=== PATIENT | male | born 2000 | race Caucasian/White ===

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

== ENCOUNTER 2020-05-01 14:16 | Emergency (ER) | payer OTHER ==
[2020-05-01 14:24] VITALS: BP 129/79; PULSE 69; TEMP 97.9; BMI 25.0
--- NOTE | 2020-05-01 15:23 | PDOC ---
History of Present Illness - General Chief Complaint: Injury Stated Complaint: FINGER INJURY Time Seen by Provider: 05/01/20 14:55 History Source: Patient Exam Limitations: No Limitations - History of Present Illness Initial Comments: 05/01/20 15:19 HISTORY OF PRESENT ILLNESS: 19-year-old male denies medical history presents emergency department for evaluation of left index finger pain for 1 week after sticking his hand into a pressure box. 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 Patient reports after he had the injury he sucked on the wounds to help achieve hemostasis. He denies any fevers chills or decreased range of motion. No recent travel or sick contacts. PAST MEDICAL HISTORY: Denies past medical history SURGICAL HISTORY: Denies ALLERGIES: No known drug allergies; peanuts, nuts REVIEW OF SYSTEMS General/Constitutional: Denies fever or chills. Denies weakness, weight change. HEENT: Denies change in vision. Denies ear pain or discharge. Denies sore throat. Cardiovascular: Denies chest pain or shortness of breath. Respiratory: Denies cough, wheezing, or hemoptysis. Gastrointestinal: Denies nausea, vomiting, diarrhea or constipation. Denies rectal bleeding. Genitourinary: Denies dysuria, frequency, or change in urination. Musculoskeletal: See HPI Skin and breasts: Denies rash or easy bruising. Neurologic: Denies headache, vertigo, loss of consciousness, or loss of sensation. Psychiatric: Denies depression or anxiety. Endocrine: Denies increased thirst. Denies abnormal weight change. Hematologic/Lymphatic: Denies anemia, easy bleeding, or history of blood clots. Allergic/Immunologic: Denies hives or skin allergy. Denies latex allergy. PHYSICAL EXAM General Appearance: Well-appearing, appropriately dressed. No apparent distress, no intoxication. Lymphatic: No adenopathy, tenderness. Musculoskeletal/Extremities: Normal inspection. FROM of all extremities, normal capillary refill. Swelling present to the PIP of the left index finger. No erythema is noted. Resolving punctate injury noted to the medial aspect of the left index finger near the PIP. No malrotation of fingers present. Calluses present to the medial aspect of bilateral great toes. Neurovascularly intact. Integumentary: Appropriate color, dry, warm. No cyanosis, erythema, jaundice or rash Past History - Medical History Allergies/Adverse Reactions: Allergies Allergy/AdvReac Type Severity Reaction Status Date / Time peanut Allergy Difficulty Verified 05/01/20 14:24 Breathing NUTS Allergy Difficulty Uncoded 05/01/20 14:24 Breathing Home Medications: Ambulatory Orders NK [No Known Home Medication] 06/04/18 Asthma: Yes (SEASONAL) - Immunization History Immunization Up to Date: Yes - Psycho-Social/Smoking History Smoking History: Never smoked Have you smoked in the past 12 months: No Number of Cigarettes Smoked Daily: 0 Information on smoking cessation initiated: No - Substance Abuse Hx (Audit-C & DAST Scrn) How often the patient has a drink containing alcohol: Never Score: In Men: 4 or > Positive; In Women: 3 or > Positive: 0 Screen Result (Pos requires Nsg. Audit-10AR): Negative In the last yr the pt used illegal drug/Rx for NonMed reason: No Score: Yes response is considered Positive: 0 Screen Result (Positive result requires Nsg. DAST-10): Negative *Physical Exam - Vital Signs Last Vital Signs Temp Pulse Resp BP Pulse Ox 97.9 F 69 18 129/79 98 05/01/20 14:21 05/01/20 14:21 05/01/20 14:21 05/01/20 14:21 05/01/20 14:21 ED Treatment Course - RADIOLOGY Radiology Studies Ordered: Category Date Time Status FINGER(S) LEFT [RAD] Stat Radiology 05/01/20 14:54 Ordered Medical Decision Making - Medical Decision Making 05/01/20 15:22 A/P: 19-year-old male with swelling to left index finger X-rays Reassess 05/01/20 15:38 X-rays as read by me: No acute fractures or dislocations present. Soft tissue swelling noted over the PIP of the left index finger. Baseball splint Discharge home with orthopedic follow-up I discussed the physical exam findings, ancillary test results and final diagnoses with the patient. I answered all of the patient's questions. The patient was satisfied with the care received and felt comfortable with the discharge plan and treatment plan. The patient will call their primary care physician within 24 hours to arrange follow-up and will return to the Emergency Department with any new, persistent or worsening symptoms. Portions of this note have been documented using voice recognition software. As a result, errors may occur in the electronics technician apprentice process. Effort has been made to correct all grammatical and electronics technician apprentice error, but some may have been missed which may produce sporadic inaccurate electronics technician apprentice or nonsensical phrases. Discharge - Discharge Information Problems reviewed: Yes Clinical Impression/Diagnosis: Contusion, finger Qualifiers: Encounter type: initial encounter Finger: index finger Damage to nail status: without damage Laterality: left Qualified Code(s): S60.022A - Contusion of left index finger without damage to nail, initial encounter Condition: Stable Disposition: HOME - Admission No - Follow up/Referral Referrals: Tahmina Fernandez MD [Primary Care Provider] - Jaspal Cervantes MD [Staff Physician] - - Patient Discharge Instructions Additional Instructions: [email or web address] You be given a referral for an orthopedist. Call to schedule appointment for reevaluation of your pain. Your emergency department visit is incomplete until you follow-up with your regular doctor. Take Tylenol 2-500 mg tablets every 6 hours as needed for pain. Take Motrin 3-200 mg tablets every 6 hours as needed for pain. These medications do not require a prescription as they are [id number]. Apply ice to affected areas to help relieve pain. Do not leave ice on for more than 20 minutes at a time. Return to the emergency department for any new or worsening symptoms. Thank you very much for choosing us to provide your emergent health care needs. - Post Discharge Activity Work/Back to School Note: Back to Work
== END 2020-05-01 15:44 | disposition home or self-care (01) ==
LOC: JERFT 14:16
DX: S60.022A Contusion of left index finger without damage to nail, initial encounter (principal)
CPT/HCPCS: 73140-TC-LT-FY; 99283-25

== ENCOUNTER 2021-03-25 12:10 | Emergency (ER) | payer BC, OTHER ==
[2021-03-25 12:43] VITALS: BP 159/76; PULSE 127; TEMP 98.6; BMI 20.3
== END 2021-03-25 14:32 | disposition home or self-care (01) ==
LOC: JER 12:10
DX: J02.9 Acute pharyngitis, unspecified (principal); J06.9 Acute upper respiratory infection, unspecified; R05 Cough; R09.81 Nasal congestion
CPT/HCPCS: 87880; 99283-25; C9803; U0003; U0005